=== PATIENT | male | born 1990 ===

== ENCOUNTER 2018-10-16 21:21 | Emergency (ER) | payer SELFPAY ==
[~2018-10-16] VITALS: Ht 177.8 cm; Wt 68.0 kg
[2018-10-16 22:10] VITALS: Ht 177.8 cm; Wt 68.0 kg
[2018-10-17] MEDS ORDERED: KEFLEX500 MG PO (00:03)
[2018-10-17 00:28] VITALS: BP 133/76
== END 2018-10-17 00:28 | disposition home or self-care (01) ==
LOC: D.ER 21:21
DX: S61.412A Laceration without foreign body of left hand, initial encounter (principal); W26.0XXA Contact with knife, initial encounter; Y93.89 Activity, other specified; Y92.019 Unspecified place in single-family (private) house as the place of occurrence of the external cause